=== PATIENT | female | born 1970 | race Caucasian/White ===

== ENCOUNTER → 2020-10-31 | Outpatient (REF) ==
--- NOTE | 2020-10-31 21:19 | REP ---
INDICATION: DDD COMPARISON: None. TECHNIQUE: AP, lateral, coned-down views of the lumbar spine. FINDINGS: Frontal view demonstrates mild chronic levoconvex scoliosis centered at L4-5. Lateral view demonstrates moderate hypertrophic facet changes at L4-5 and L5-S1 along with endplate sclerosis and mild disc space narrowing at L5-S1. Alignment and lordosis maintained. No acute fracture/compression injury or subluxation. IMPRESSION: 1. [id number] degenerative changes as noted above. <Electronically signed by Richard Dove > 10/31/20 3021
== END ==
LOC: M PLAIMG 13:11
PROVIDERS: ATTEND Internal Medicine
DX: M51.37 Other intervertebral disc degeneration, lumbosacral region (principal)